=== PATIENT | female | born 1965 | race Caucasian/White ===

== ENCOUNTER 2018-07-09 13:27 | Outpatient (CLI) | payer SELFPAY ==
--- NOTE | 2018-07-09 16:11 | DI.MAMMO_ITS ---
SYMPTOM/DIAGNOSIS; SCREENING, [facility] Z00.00 MAMMOGRAM: Mammograms were interpreted according to the usual protocol including computer analysis with CAD system, tomosynthesis and C view imaging. Comparison with prior examinations. Breast density B. No suspicious masses or microcalcifications are seen. There is an asymmetric density in the retro-areolar region of the left breast. This may represent overlying fibroglandular tissue. Spot compression views requested for further evaluation. IMPRESSION: Additional views of the left breast as described above. Category 0 -B. MQSA ASSESSMENT OF FINDINGS: Incomplete: Needs additional imaging evaluation. Category 0. Patient will receive a letter notifying them of these results. BI-RADS category B. There are scattered areas of fibroglandular density.
== END 2018-07-09 13:47 ==
PROVIDERS: PCP Nurse Practitioner Family; Visit Provider Nurse Practitioner Family
DX: Z12.31 Encounter for screening mammogram for malignant neoplasm of breast (principal); R92.8 Other abnormal and inconclusive findings on diagnostic imaging of breast
CPT/HCPCS: 77063; 77067

== ENCOUNTER 2018-07-17 01:48 | Outpatient (CLI) | payer SELFPAY ==
--- NOTE | 2018-07-17 14:30 | DI.COMBO_ITS ---
SYMPTOM/DIAGNOSIS: F/U MAMMO, ASYMMETRIC DENSITY, R92.8 LEFT BREAST ADDITIONAL VIEWS AND LEFT BREAST ULTRASOUND: Additional images are interpreted according to the usual protocol including tomosynthesis and 2D imaging. On the follow up images, no definite nodule is identified. At ultrasound, at 3 o'clock there is a 5 by 4 by 5 mm., well circumscribed, rounded cyst which likely contains debris which is 2 cm. from the nipple. At 12 o'clock, 3 cm. from the nipple is a questioned solid/hypoechoic 5 by 4 by 6 mm. area of nodularity. In the retroareolar region, there are dilated ducts. SUMMARY: Question small cyst with debris at 3 o'clock and question solid 12 o'clock nodule as noted above. There is no specific finding to suggest a malignancy, however further evaluation with a repeat ultrasound in 6 months is suggested. MQSA ASSESSMENT OF FINDINGS: Probably benign. Six month follow-up recommended. Category 3. Patient will receive a letter notifying them of these results. BI-RADS category B. There are scattered areas of fibroglandular density.
== END 2018-07-17 02:08 ==
PROVIDERS: PCP Nurse Practitioner Family; Visit Provider Nurse Practitioner Family
DX: Z12.31 Encounter for screening mammogram for malignant neoplasm of breast (principal); R92.8 Other abnormal and inconclusive findings on diagnostic imaging of breast; N60.02 Solitary cyst of left breast; N63.21 Unspecified lump in the left breast, upper outer quadrant
CPT/HCPCS: 76642; 77063; 77067

== ENCOUNTER 2020-08-07 10:21 | Emergency (ER) | payer SELFPAY ==
[2020-08-07 10:23] VITALS: BP 146/98; PULSE 84; RESP 14; TEMP 36.8; O2SAT 97
--- NOTE | 2020-08-07 10:37 | ED.GENADUL_ITS ---
Discharge Plan Disposition Patient Disposition: HOME Condition: Stable Discharge Details Clinical Impression: Cystitis Primary Care Provider: Gabi Evangelista ED Provider: Sawyer Astorga Home Meds and New Rx's Prescriptions: New nitrofurantoin monohyd/m-cryst [Macrobid] 100 mg capsule 100 mg PO Q12H 5 Days Qty: 10 RF: 0 Continued imipramine HCl [Tofranil] 50 MG tablet 50 mg PO DAILY RF: 0 sumatriptan succinate 100 MG tablet 100 mg PO PRN PRN (Reason: Headache) RF: 0 norethindrone-e.estradiol-iron [Microgestin FE 05/18 (28)] 1 EACH tablet 1 tab PO DAILY RF: 0 venlafaxine 100 MG tablet 100 - 200 mg PO BID RF: 0 propranolol 10 MG tablet 10 mg PO BID RF: 0 alprazolam [Xanax XR] 3 MG tablet extended release 24 hr 3 mg PO DAILY RF: 0 bupropion HCl 300 mg tablet extended release 24 hr 300 mg PO DAILY RF: 0 escitalopram oxalate 20 mg tablet 20 mg PO DAILY RF: 0 clonazepam 1 mg tablet 1 mg PO DAILY PRNRF: 0 Discharge Instructions Instructions: Urinary Tract Infection in Men (ED) Additional Instructions: if symptoms don't resolve within 5 days see your primary care provider if you have fevers, severe back pain or persistent vomit return to the emergency department Medical Decision Making 54 yo female comes in with complaints of having a uti. She states since yesterday has had burning with urination and frequency and denies fevers, back pain, abdominal pain, vomit. She states it feels like prior uti's and last had one over 5 years ago. SHe is in no distress and has no fever on triage vitals and appears well systemically without cva tenderness. suspect cystitis based on symptoms, will obtain ua. Given well appearance and normal exam doubt pyelo or sepsis at this time ua consistent with uti, will start macrobid and return precautions given Differential Diagnosis Differential Diagnosis: cystitis, uti, urethritis HPI General Mode of arrival: ambulatory . Date/Time Provider Initiated Documentation: 08/07/20 10:22 . Limitations to Documentation: no limitations . Information obtained by: patient . History of Present Illness 54 year old F presents to the emergency department with the chief complaint of uti symptoms, described as moderate, Patient started experiencing this day(s) (1) and it has been constant. No relieving factors improve symptom(s), No exacerbating factors reported . Related Data Home Medications Medication Instructions Recorded Confirmed imipramine HCl [Tofranil] 50 mg PO DAILY 02/09/13 11/05/13 norethindrone-e.estradiol-iron 1 tab PO DAILY 02/09/13 11/05/13 [Microgestin FE 05/18 ()] sumatriptan succinate 100 mg PO PRN PRN 02/09/13 08/07/20 alprazolam [Xanax XR] 3 mg PO DAILY 11/05/13 11/05/13 propranolol 10 mg PO BID 11/05/13 11/05/13 venlafaxine 100 - 200 mg PO BID 11/05/13 11/05/13 bupropion HCl 300 mg PO DAILY 08/07/20 08/07/20 clonazepam 1 mg PO DAILY PRN 08/07/20 08/07/20 escitalopram oxalate 20 mg PO DAILY 08/07/20 08/07/20 nitrofurantoin monohyd/m-cryst 100 mg PO Q12H 5 Days #10 cap 08/07/20 [Macrobid] Previous Rx's Medication Instructions Recorded nitrofurantoin monohyd/m-cryst 100 mg PO Q12H 5 Days #10 cap 08/07/20 [Macrobid] Allergies Allergy/AdvReac Type Severity Reaction Status Date / Time No Known Allergies Allergy Unverified 08/07/20 10:28 General Stated Complaint: Urinary MAX: 4 Review of Systems All systems reviewed & are unremarkable except as noted in HPI and below Constitutional Constitutional: Denies chills, Denies fever(s) and Denies weakness Cardiovascular Cardiovascular: Denies chest pain and Denies dyspnea Respiratory Respiratory: Denies cough and Denies dyspnea Gastrointestinal Gastrointestinal: Denies abdominal pain, Denies nausea and Denies vomiting Neurologic Neurologic: Denies weakness [facility] Social History Smoking/Tobacco Use Status: Former Tobacco Use Smoking risk assessment performed?: Yes Alcohol Intake: never Drug use: Never Substance use type: does not use Details: smoked as a teanager Do you feel safe at home: Yes Do you feel safe in your relationship?: Yes Exam Const General: no acute distress Orientation: alert HENMT Head: normal to inspection Ears: external ears normal General nose exam: external nose normal Mouth: moist mucous membranes Eyes General: appearance normal, both eyes and all related structures Neck Neck: normal visual inspection Resp Effort & Inspection: normal respiratory effort and able to speak in complete sentences Cardio Rate: regular rate Back/Spine/Pelvis Back: no CVA tenderness Skin General skin exam: no rashes or lesions noted Neuro General: patient alert and patient oriented x3 Extrem General: normal to inspection Psych Mental Status: mental status grossly normal Course Vital Signs Vital signs: Vital Signs Temperature 36.8 C 08/07/20 10:23 Pulse 84 08/07/20 10:23 Respiratory Rate 14 08/07/20 10:23 Blood Pressure 146/98 H 08/07/20 10:23 Pulse Oximetry 97 08/07/20 10:23 Temperature 36.8 C 08/07/20 10:23 Temperature Source Skin 08/07/20 10:23 Pulse 84 08/07/20 10:23 Respiratory Rate 14 08/07/20 10:23 Respiratory Effort 08/07/20 10:31 Blood Pressure 146/98 H 08/07/20 10:23 Blood Pressure Position Sitting 08/07/20 10:23 Pulse Oximetry 97 08/07/20 10:23 Oxygen Delivery Method Room Air 08/07/20 10:23 Oxygen Flow Rate 0 08/07/20 10:23 Pain Level 6 08/07/20 10:32 Lab/Test Results Lab/Test Results: 08/07/20 10:26 Urine - Clean Catch Urine Culture - Pending
[2020-08-07 10:41] LABS: Bilirubin Negative (Negative); Blood Large (Negative); Clarity Sl Cloudy (Clear); Glucose Negative (Negative); Ketones Negative (Negative); Leukocyte Esterase Moderate (Negative); Nitrite Negative (Negative); Urobilinogen 0.2 EU/dL (Up TO 0.2)
[2020-08-07 10:55] LABS: Epithelial Cells Rare HPF (Negative); RBC >50 HPF (0-2); WBC >50 HPF (0-5)
[2020-08-07 10:56] LABS: Bacteria Moderate HPF (Negative); C & S Indicated? C&S Done As Ordered; Crystals Negative HPF (Negative); Mucus Negative (Negative); Other Cells Few Transitional (Negative)
== END 2020-08-07 10:52 | disposition home or self-care (01) ==
PROVIDERS: Emergency Provider Emergency Medicine; PCP Nurse Practitioner Family
DX: N30.00 Acute cystitis without hematuria (principal); Z87.440 Personal history of urinary (tract) infections
CPT/HCPCS: 87077; 99283; 81003; 81015; 87086; 87186

== ENCOUNTER 2021-06-09 13:25 | Outpatient (REF) | payer BC, SELFPAY ==
[2021-06-11 10:30] LABS: COVID-19 RT-PCR UVMMC Result Negative (Negative)
== END 2021-06-09 13:26 | disposition home or self-care (01) ==
LOC: LBN 13:25
PROVIDERS: PCP Nurse Practitioner Family; Visit Provider Physician Assistant Medical
DX: Z20.822 Contact with and (suspected) exposure to COVID-19 (principal); J02.9 Acute pharyngitis, unspecified
CPT/HCPCS: U0003

== ENCOUNTER 2021-10-26 15:45 | Outpatient (REF) | payer BC, SELFPAY ==
[2021-10-26 19:05] LABS: HCT 37.6 % (36.0-46.0); HGB 12.4 g/dL (11.2-15.7); MCH 27.8 pg (27.0-33.0); MCV 84 fL (80-95); MPV 9.1 fL (8.0-11.0); Platelet Count 273 10^3/uL (130-400); RBC 4.46 10^6/uL (3.93-5.22); RDW 11.8 % (11.7-14.6); WBC 5.25 10^3/uL (4.4-10.8)
[2021-10-26 19:20] LABS: Anion Gap 7.1 mmol/L (3-11); BUN 16 mg/dL (7-18); CO2 28.9 mmol/L (21.0-32.0); CREATININE 0.9 mg/dL (0.55-1.02); Calcium 8.7 mg/dL (8.5-10.1); Calculated LDL 89 mg/dL (<100); Chloride 103 mmol/L (98-107); Cholesterol 179 mg/dL (<200); Glucose 99 mg/dL (74-106); HDL Cholesterol 65 mg/dL (40-60); Sodium 139 mmol/L (136-145); Triglyceride 126 mg/dL (<150)
== END 2021-10-26 15:46 | disposition home or self-care (01) ==
LOC: NCHCN 15:45
PROVIDERS: PCP Nurse Practitioner Family; Visit Provider Nurse Practitioner Family
DX: Z00.00 Encounter for general adult medical examination without abnormal findings (principal); Z13.220 Encounter for screening for lipoid disorders; R03.0 Elevated blood-pressure reading, without diagnosis of hypertension
CPT/HCPCS: 80048; 80061; 85027

== ENCOUNTER → 2021-11-22 01:49 | Outpatient (CLI) | payer BC, SELFPAY ==
--- NOTE | 2021-11-22 15:33 | DI.MAMMO_ITS ---
Exam(s) MAMMO SCREENING EXAM: MAMMO SCREENING CLINICAL HISTORY: SCREENING, Z12.39 TECHNIQUE: Bilateral full field digital CC and MLO mammographic images were obtained with 3D tomosyn thesis and utilizing computer aided detection (CAD). COMPARISON: Available for comparison. FINDINGS: Masses/Architectural Distortion: None seen. Microcalcifications: There is a new cluster of calcifications in the upper outer quadrant of the righ t breast. Skin Thickening/Nipple Retraction: None. IMPRESSION: 1. New cluster of microcalcifications in the upper-outer quadrant of the right breast. 2. These calcification should be further characterized using spot magnification views. BI-RADS Category 0 - Assessment Incomplete: Need additional imaging evaluation Breast Density - Category B - Scattered areas of fibroglandular density Breast density category C or D implies that the patient has dense breast tissue. Dense breast tissue is very common and is not abnormal but dense breast tissue can make it harder to find cancer on a ma mmogram. Also, dense breast tissue may increase their breast cancer risk. This information about the result of the mammogram report was provided to the patient to raise their awareness. Use this report when you speak with the patient about their risks for breast cancer, which includes their family hist ory. At that time, you may recommend for more screening tests (Ultrasound or MRI) as they might be us eful based on their risk. A negative radiographic report should not delay biopsy if a dominant or clinically suspicious mass is present. Up to ten percent of cancers are not identified on mammography. A negative report may reinforce clinical impression. Adenosis and dense breasts may obscure an underlying neoplasm. False positive reports average 6 to 10%. Patient will receive a letter notifying them of these results.
== END ==
PROVIDERS: PCP Nurse Practitioner Family; Visit Provider Nurse Practitioner Family
DX: Z12.31 Encounter for screening mammogram for malignant neoplasm of breast (principal); R92.8 Other abnormal and inconclusive findings on diagnostic imaging of breast; R92.0 Mammographic microcalcification found on diagnostic imaging of breast
CPT/HCPCS: 77063; 77067

== ENCOUNTER → 2021-11-27 01:16 | Outpatient (CLI) | payer BC, SELFPAY ==
--- NOTE | 2021-11-27 | DI.MAMMO_ITS ---
Exam(s) MG MAMMO SCREEN CALL BACK UNI US BREAST RT LIMITED EXAM: MG MAMMO SCREEN CALL BACK UNI CLINICAL HISTORY: F/U MAMMO, NEW CLUSTER MICROCALCIFICATIONS RT BREAST TECHNIQUE: Mammograms were interpreted according to the usual protocol including computer analysis w ith CAD system, tomosynthesis and C-view imaging. COMPARISON: FINDINGS: Additional mammographic views of the right breast and right breast ultrasound are interpreted in conj unction. These examinations were obtained to evaluate group of microcalcifications seen on recent ma mmogram in the upper outer quadrant of the right breast. Magnification spot compression views show a group of microcalcifications about 5 cm from the nipple in the upper outer quadrant of the breast. These number at least 20 and although many are punctate there are some juan-like and other pleomorphic calcifications. No mass identified mammographically or ultrasonographically. The microcalcificatio ns are not seen on ultrasound. IMPRESSION: Suspicious group of microcalcifications of the right breast, new since prior mammogram of June 2018. Biopsy is recommended, stereotactic biopsy is indicated due to lack of visibility on ultrasound. BI-RADS Category 4 - Suspicious Abnormality: Biopsy should be considered Breast Density - Category B - Scattered areas of fibroglandular density
== END ==
PROVIDERS: PCP Nurse Practitioner Family; Visit Provider Nurse Practitioner Family
DX: Z12.31 Encounter for screening mammogram for malignant neoplasm of breast (principal); R92.8 Other abnormal and inconclusive findings on diagnostic imaging of breast; R92.0 Mammographic microcalcification found on diagnostic imaging of breast
CPT/HCPCS: 76642; 77063; 77067

== ENCOUNTER 2022-05-22 11:25 | Outpatient (REF) | payer BC, SELFPAY ==
[2022-05-22 15:05] LABS: HCT 39.2 % (36.0-46.0); HGB 12.9 g/dL (11.2-15.7); MCH 27.7 pg (27.0-33.0); MCHC 32.9 % (32.0-36.0); MCV 84 fL (80-95); MPV 8.8 fL (8.0-11.0); Platelet Count 289 10^3/uL (130-400); RBC 4.65 10^6/uL (3.93-5.22); RDW-SD 36.7 fL; WBC 6.46 10^3/uL (4.4-10.8)
[2022-05-22 18:42] LABS: Iron 34 ug/dL (50-170); Total Iron Binding Capacity 240 ug/dL (250-450); Transferrin Sat 14 % (15-50)
[2022-05-22 20:10] LABS: Anion Gap 10.6 mmol/L (3-11); BUN 15 mg/dL (7-18); CO2 25.4 mmol/L (21.0-32.0); Calcium 9.4 mg/dL (8.5-10.1); Chloride 105 mmol/L (98-107); Estimated GFR 66.95 (mL/min/1.73m2); Ferritin 124 ng/mL (8-252); Glucose 121 mg/dL (74-106); Potassium 4.6 mmol/L (3.5-5.1); Sodium 141 mmol/L (136-145); TSH (W/Ref FT4) 0.73 uIU/mL (0.36-3.74)
[2022-05-22 20:46] LABS: Vitamin D 25 Total 55.2 ng/mL (30-100)
== END 2022-05-22 11:26 | disposition home or self-care (01) ==
LOC: NCHCN 11:25
PROVIDERS: PCP Nurse Practitioner Family; Visit Provider Nurse Practitioner Family
DX: R53.83 Other fatigue (principal); F41.8 Other specified anxiety disorders; E55.9 Vitamin D deficiency, unspecified; E61.1 Iron deficiency
CPT/HCPCS: 80048; 82306; 85027; 82728; 83540; 83550; 84443

== ENCOUNTER 2022-11-26 01:02 | Outpatient (CLI) | payer BC, SELFPAY ==
--- NOTE | 2022-11-26 | DI.US_ITS ---
Exam(s) US BREAST RT COMPLETE MG MAMMO SCREENING 60 MIN DUR EXAM: MG MAMMO SCREENING 60 MIN DUR AND COMPLETE RIGHT BREAST ULTRASOUND CLINICAL HISTORY: SCREENING, Z12.39,PERSONAL H/O BREAST CA. TECHNIQUE: Bilateral full field digital CC and MLO mammographic images were obtained with 3D tomosyn thesis and utilizing computer aided detection (CAD). From the additional spot compression view right breast. Complete right breast ultrasound was performed including all 4 quadrants as well as the axillary griffin ons. COMPARISON: Prior mammograms were reviewed. This patient underwent right breast lumpectomy for microcalcifications since her last mammogram. FINDINGS: MAMMOGRAM: No new findings in the left breast. In the right breast there is absence of the previously present microcalcification group. No evidence of recurrence of these microcalcifications nor new microcalcification groups. There is some archite ctural distortion from scarring at the lumpectomy site. There is a new small noncalcified non spiculated nodule at approximately 6 o'clock position on the ma mmogram. This persists on additional spot compression view performed today. We proceeded with ultrasound. COMPLETE RIGHT BREAST ULTRASOUND: At the 6 o'clock position there is a 4 millimeter benign microcyst evident. This corresponds to the finding on the mammogram. No other cysts nor nodules. At 7-8 o'clock position there is some scar ti ssue evident. This is site of the prior lumpectomy. IMPRESSION: 1. No radiographic evidence of malignancy in the left breast. 2. In the right breast there is no recurrence of the microcalcification group and there are no new ma lignant-appearing microcalcification groups. There is a new nodule at 6 o'clock position which corre sponds to a 4 mm benign microcyst on today's ultrasound. Appropriate follow-up, as discussed by myself with the patient today, is repeat right breast mammogra m in 6 months BI-RADS Category 3 - 6 month - Probably Benign Finding: Recommend follow-up mammography in 6 months Breast Density - Category B - Scattered areas of fibroglandular density Breast density Category C or D implies that the patient has dense breast tissue. Dense breast tissue can make it harder to find cancer on a mammogram. Dense breast tissue is also associated with an incr eased risk of breast cancer. This information about the result of the mammogram report was provided to the patient to raise their awareness. Use this report when you speak with the patient about their risks for breast cancer, which includes their family history. At that time, you may recommend additional screening tests (Ultrasoun d or MRI) as these tests may add significant information. A negative radiographic report should not delay biopsy if a dominant or clinically suspicious mass is present. Up to ten percent of cancers are not identified on mammography. A negative report may reinforce clinical impression. Adenosis and dense breasts may obscure an underlying neoplasm. False positive reports average 6 to 10%. Patient will receive a letter notifying them of these results.
== END 2022-11-26 01:22 ==
LOC: DI 01:02
PROVIDERS: PCP Nurse Practitioner Family; Visit Provider Nurse Practitioner Family
DX: Z12.31 Encounter for screening mammogram for malignant neoplasm of breast (principal); N63.15 Unspecified lump in the right breast, overlapping quadrants
CPT/HCPCS: 76642; 77063; 77067

== ENCOUNTER → 2023-05-28 01:17 | Outpatient (CLI) | payer BC, SELFPAY ==
--- NOTE | 2023-05-28 09:49 | DI.MAMMO_ITS ---
Exam(s) MG MAMMO DIAGNOSTIC UNI EXAM: MAMMO DIAGNOSTIC UNI -RIGHT CLINICAL HISTORY: RT BREAST CANCER D05.11 R92.8 ABNL MAMMO, 6 MO FU. TECHNIQUE: RIGHT BREAST CC AND MLO mammographic images were obtained with 3D tomosynthesis technique and utilizing computer aided detection (CAD). COMPARISON: Prior mammograms were reviewed, as was prior ultrasound examination. This patient had r ecent right breast lumpectomy for microcalcifications in November 2021 (malignant). This is a six-month follow-up for a new nodular finding 11/26/2022 which was shown to be a microcyst on ultrasound. FINDINGS: The 6 o'clock position nodular density is less evident on the present study, further evidence that it was a small cyst. There are no new spiculated masses. Architectural distortion from the lumpectomy is again noted. There has been no recurrence of the microcalcifications previously seen in 2021. IMPRESSION: No radiographic evidence of malignancy in the right breast Previously present small 6 o'clock position nodule shown to be a cyst on prior ultrasound is no longe r seen. Appropriate follow-up is to keep this patient on her yearly mammogram schedule, with earlier imaging if a self detected breast change is noted. The patient was informed of the findings and follow-up recommendations by myself prior to leaving the department today. BI-RADS Category 2 - Benign Findings Breast Density - Category B - Scattered areas of fibroglandular density Breast density Category C or D implies that the patient has dense breast tissue. Dense breast tissue can make it harder to find cancer on a mammogram. Dense breast tissue is also associated with an incr eased risk of breast cancer. This information about the result of the mammogram report was provided to the patient to raise their awareness. Use this report when you speak with the patient about their risks for breast cancer, which includes their family history. At that time, you may recommend additional screening tests (Ultrasoun d or MRI) as these tests may add significant information. A negative radiographic report should not delay biopsy if a dominant or clinically suspicious mass is present. Up to ten percent of cancers are not identified on mammography. A negative report may reinforce clinical impression. Adenosis and dense breasts may obscure an underlying neoplasm. False positive reports average 6 to 10%. Patient will receive a letter notifying them of these results.
== END ==
PROVIDERS: PCP Nurse Practitioner Family; Visit Provider Nurse Practitioner Family
DX: Z12.31 Encounter for screening mammogram for malignant neoplasm of breast (principal); R92.8 Other abnormal and inconclusive findings on diagnostic imaging of breast
CPT/HCPCS: 77061; 77065; G0279

== ENCOUNTER 2023-06-16 11:34 | Emergency (ER) | payer BC, SELFPAY ==
[2023-06-16 11:35] VITALS: BP 136/86; PULSE 89; RESP 15; TEMP 36.7; O2SAT 98
[2023-06-16 11:39] VITALS: BP 136/86; PULSE 89; RESP 15; TEMP 36.7; O2SAT 98
[2023-06-16 11:54] LABS: Bilirubin Negative (Negative); Blood Small (Negative); Clarity Clear (Clear); Glucose Negative (Negative); Ketones Trace mg/dL (Negative); Leukocyte Esterase Small (Negative); Nitrite Negative (Negative); Specific Gravity 1.015 (1.005-1.025); pH 7.5 (5-8)
--- NOTE | 2023-06-16 12:02 | ED.GENADUL_ITS ---
HPI General Mode of arrival: ambulatory . Date/Time Provider Initiated Documentation: 06/16/23 11:37 . Limitations to Documentation: no limitations . Information obtained by: patient . History of Present Illness 57 year old F presents to the emergency department with the chief complaint of Dysuria, described as moderate, Patient started experiencing this day(s) (1) and it has been constant. No relieving factors improve symptom(s), No exacerbating factors reported . Patient notes denies fever/chills and nausea/vomiting. Patient did receive the following treatments prior to arrival, none Related Data Home Medications Medication Instructions Recorded Confirmed sumatriptan succinate 100 mg tablet 100 mg PO PRN PRN Headache 02/09/13 06/16/23 bupropion HCl 300 mg 24 hr tablet, 300 mg PO DAILY 08/07/20 06/16/23 extended release clonazepam 1 mg tablet 1 mg PO DAILY PRN 08/07/20 06/16/23 escitalopram oxalate 20 mg tablet 20 mg PO DAILY 08/07/20 06/16/23 hydrochlorothiazide 25 mg tablet 25 mg PO DAILY 06/16/23 06/16/23 nitrofurantoin 100 mg PO Q12H 5 days #10 caps 06/16/23 monohydrate/macrocrystals 100 mg capsule (Macrobid) Previous Rx's Medication Instructions Recorded nitrofurantoin 100 mg PO Q12H 5 days #10 caps 06/16/23 monohydrate/macrocrystals 100 mg capsule (Macrobid) Allergies Allergy/AdvReac Type Severity Reaction Status Date / Time No Known Allergies Allergy Unverified 06/16/23 11:39 General Stated Complaint: Urinary MAX: 4 Review of Systems All systems reviewed & are unremarkable except as noted in HPI and below Constitutional Constitutional: Denies chills, Denies fever(s) and Denies weakness Cardiovascular Cardiovascular: Denies chest pain and Denies dyspnea Respiratory Respiratory: Denies cough and Denies dyspnea Gastrointestinal Gastrointestinal: Denies abdominal pain, Denies nausea and Denies vomiting Genitourinary Genitourinary: Reports dysuria and Reports urinary urgency Integumentary/Breasts Skin/Breast: Denies rash Neurologic Neurologic: Denies weakness Exam Const General: no acute distress Orientation: alert HENMT Head: normal to inspection Ears: external ears normal General nose exam: external nose normal Mouth: moist mucous membranes Eyes General: appearance normal, both eyes and all related structures Neck Neck: normal visual inspection Resp Effort & Inspection: normal respiratory effort and able to speak in complete sentences Cardio Rate: regular rate GI Palpation: soft and nontender Back/Spine/Pelvis Back: no CVA tenderness Skin General skin exam: no rashes or lesions noted Neuro General: patient alert and patient oriented x3 Extrem General: normal to inspection Psych Mental Status: mental status grossly normal Course Vital Signs Vital signs: Vital Signs Temperature 36.7 C 06/16/23 11:35 Pulse 89 06/16/23 11:35 Respiratory Rate 15 06/16/23 11:35 Blood Pressure 136/86 06/16/23 11:35 Pulse Oximetry 98 06/16/23 11:35 Temperature 36.7 C 06/16/23 11:39 Temperature Source Temporal Artery Scan 06/16/23 11:39 Pulse 89 06/16/23 11:39 Respiratory Rate 15 06/16/23 11:39 Blood Pressure 136/86 06/16/23 11:39 Blood Pressure Position Sitting 06/16/23 11:39 Pulse Oximetry 98 06/16/23 11:39 Oxygen Delivery Method Room Air 06/16/23 11:39 Oxygen Flow Rate 0 06/16/23 11:39 Pain Level 0 06/16/23 11:39 Medical Decision Making 57-year-old female comes in with complaints of painful urination and urinary urgency for days similar to prior UTIs. She denies any abdominal pain, nausea vomiting, fevers, back pain. She arrives appearing well conscious alert and oriented x 4 speaking in full sentences in no distress. She has no CVA tenderness, no abdominal tenderness. Given her symptoms suspect UTI will obtain a urinalysis. She has no findings on exam or history and appears well so doubt entities such as sepsis or pyelonephritis and do not feel any labs or imaging indicated at this point other than a UA UA consistent with UTI, will start on nitrofurantoin, advised to follow-up with her primary care provider this week if not improving, return precautions given Differential Diagnosis Differential Diagnosis: Cystitis, UTI Quality:SDOH Health Related Social Needs: No Data to Display PFSH All Active Problems (Updated 06/16/23 @ 12:16 by Sawyer Astorga MD) Cystitis (Acute) Social History Smoking/Tobacco Use Status: Former Tobacco Use Smoking risk assessment performed?: Yes Alcohol Intake: never Drug use: Never Substance use type: does not use Details: smoked as a teanager Do you feel safe at home: Yes Do you feel safe in your relationship?: Yes Discharge Plan Disposition Patient Disposition: Home Condition: Stable Discharge Details Clinical Impression: Cystitis Primary Care Provider: JOSEPH ROE ED Provider: Sawyer Astorga Home Meds and New Rx's Prescriptions: New nitrofurantoin monohyd/m-cryst [Macrobid] 100 mg capsule 100 mg PO Q12H 5 Days Qty: 10 0RF Rx Instructions: must administer with a meal/food Continued sumatriptan succinate 100 MG tablet 100 mg PO PRN PRN (Reason: Headache) bupropion HCl 300 mg tablet extended release 24 hr 300 mg PO DAILY Patient Comments: TAKE ONE TABLET BY MOUTH EVERY DAY escitalopram oxalate 20 mg tablet 20 mg PO DAILY Patient Comments: TAKE 1 TABLET BY MOUTH DAILY clonazepam 1 mg tablet 1 mg PO DAILY PRN Patient Comments: TAKE ONE TABLET BY MOUTH EVERY DAY IF NEEDED FOR ANXIETY PLEASE SCHEDULE APPOINTMENT hydrochlorothiazide 25 mg tablet 25 mg PO DAILY Patient Comments: TAKE ONE TABLET BY MOUTH EVERY DAY Discharge Instructions Instructions: Urinary Tract Infection in Women (ED) Additional Instructions: If you not improving this week follow-up with your primary care provider If you feel more ill, develop fevers, or severe back pain return to the emergency department for reevaluation
[2023-06-16 12:12] LABS: Bacteria Rare HPF (Negative); C & S Indicated? Yes; Casts 0-2 Hyaline LPF (Negative); Crystals Negative HPF (Negative); Epithelial Cells Rare HPF (Negative); Mucus Trace (Negative)
--- NOTE | 2023-06-18 08:01 | NUR.NOTE ---
Accessed Pt chart to document antibiotic prescribed to pt for the specimen document
== END 2023-06-16 12:20 | disposition home or self-care (01) ==
PROVIDERS: Emergency Provider Emergency Medicine; PCP Nurse Practitioner Family
DX: N30.90 Cystitis, unspecified without hematuria (principal); R30.0 Dysuria; Z87.440 Personal history of urinary (tract) infections
CPT/HCPCS: 87077; 99283; 81003; 81015; 87086

== ENCOUNTER 2023-08-15 16:14 | Outpatient (REF) | payer BC, SELFPAY ==
[2023-08-15 19:20] LABS: HCT 37.8 % (36.0-46.0); HGB 12.9 g/dL (11.2-15.7); MCH 27.7 pg (27.0-33.0); MCHC 34.1 % (32.0-36.0); MCV 81 fL (80-95); Platelet Count 233 10^3/uL (130-400); RBC 4.65 10^6/uL (3.93-5.22); RDW 11.9 % (11.7-14.6); RDW-SD 35.2 fL; WBC 4.45 10^3/uL (4.4-10.8)
[2023-08-15 19:48] LABS: ALT 23 U/L (14-59); AST 17 U/L (15-37); Albumin 4.1 g/dL (3.4-5.0); Alkaline Phosphatase 99 U/L (46-116); Anion Gap 8.7 mmol/L (3-11); BUN 21 mg/dL (7-18); Bilirubin, Total 0.3 mg/dL (0.2-1.0); CO2 27.3 mmol/L (21.0-32.0); CREATININE 0.9 mg/dL (0.55-1.02); Calcium 8.7 mg/dL (8.5-10.1); Chloride 102 mmol/L (98-107); Ferritin 68 ng/mL (8-252); Glucose 120 mg/dL (74-106); Sodium 138 mmol/L (136-145)
[2023-08-15 19:58] LABS: Iron 45 ug/dL (50-170)
== END 2023-08-15 16:15 | disposition home or self-care (01) ==
LOC: NCHCN 16:14
PROVIDERS: PCP Nurse Practitioner Family; Visit Provider Nurse Practitioner Family
DX: I10 Essential (primary) hypertension (principal); E61.1 Iron deficiency
CPT/HCPCS: 80053; 85027; 82728; 83540; 83550

== ENCOUNTER 2024-01-28 01:46 | Outpatient (CLI) | payer BC, SELFPAY ==
--- NOTE | 2024-01-28 | DI.MAMMO_ITS ---
Exam(s) MG MAMMO SCREENING 60 MIN DUR EXAM: MG MAMMO SCREENING 60 MIN DUR CLINICAL HISTORY: Screening, Z12.31,personal h/o breast ca TECHNIQUE: Mammograms were interpreted according to the usual protocol including computer analysis w [employer] CAD system, tomosynthesis and C-view imaging. COMPARISON: 2014 through 28 May 2023 FINDINGS: The breasts are composed of scattered fibroglandular densities, Breast Density category B. No suspicious masses or suspicious microcalcifications are seen. Mild post lumpectomy scarring in th e right breast No skin thickening or abnormal axillary lymph nodes are seen. There has been no significant change from prior exams. IMPRESSION: BI-RADS Category 2 - Benign Findings Yearly screening mammography is recommended. Breast Density - Category B, scattered fibroglandular densities. A negative radiographic report should not delay biopsy if a dominant or clinically suspicious mass is present. Up to ten percent of cancers are not identified on mammography. A negative report may reinforce clinical impression. Adenosis and dense breasts may obscure an underlying neoplasm. False positive reports average 6 to 10%. Patient will receive a letter notifying them of these results.
== END 2024-01-28 02:06 ==
LOC: DI 01:47
PROVIDERS: PCP Nurse Practitioner Family; Visit Provider Nurse Practitioner Family
DX: Z12.31 Encounter for screening mammogram for malignant neoplasm of breast (principal); Z85.3 Personal history of malignant neoplasm of breast
CPT/HCPCS: 77063; 77067

== ENCOUNTER 2024-08-25 21:49 | Outpatient (REF) | payer BC, SELFPAY | END 2024-08-25 21:50 | disposition home or self-care (01) | LOC: LBN 21:49 | PROVIDERS: PCP Nurse Practitioner Family; Visit Provider Nurse Practitioner Family | DX: N30.01 Acute cystitis with hematuria (principal) | CPT/HCPCS: 87086 ==

== ENCOUNTER 2024-09-01 19:45 | Outpatient (REF) | payer BC, SELFPAY ==
[2024-09-01 22:17] LABS: Epithelial Cells Rare HPF (Negative); Other Cells Few Transitional (Negative); WBC 0-2 HPF (0-5)
[2024-09-01 22:18] LABS: Bacteria Few HPF (Negative); C & S Indicated? No; Casts Negative LPF (Negative); Crystals Negative HPF (Negative); Mucus Negative (Negative)
== END 2024-09-01 19:46 | disposition home or self-care (01) ==
LOC: LBN 19:45
PROVIDERS: PCP Nurse Practitioner Family; Visit Provider Nurse Practitioner Family
DX: R31.29 Other microscopic hematuria (principal)
CPT/HCPCS: 81015

== ENCOUNTER 2024-09-14 12:53 | Outpatient (REF) | payer BC, SELFPAY ==
[2024-09-14 16:46] LABS: Bilirubin Negative (Negative); Blood Negative (Negative); Clarity Clear (Clear); Glucose Negative (Negative); Ketones Negative (Negative); Leukocyte Esterase Negative (Negative); Nitrite Negative (Negative); Urobilinogen 0.2 mg/dL (Up to 0.2); pH 6.5 (5-8)
== END 2024-09-14 12:54 | disposition home or self-care (01) ==
LOC: NCHCN 12:53
PROVIDERS: PCP Nurse Practitioner Family; Visit Provider Nurse Practitioner Family
DX: R31.9 Hematuria, unspecified (principal)
CPT/HCPCS: 81003

== ENCOUNTER 2024-10-06 17:26 | Emergency (ER) | payer BC, SELFPAY ==
[2024-10-06 17:29] VITALS: BP 147/96; PULSE 70; RESP 18; TEMP 36.4; O2SAT 97
--- NOTE | 2024-10-06 18:04 | W.ED.GENAD ---
Discharge Plan Disposition Patient Disposition: Home Condition: Stable Discharge Details Clinical Impression: Injury of chest wall, Fall involving table as cause of accidental injury Primary Care Provider: JOSEPH ROE ED Provider: Monique Jimenez Home Meds and New Rx's Prescriptions: New lidocaine 5 % adhesive patch,medicated 1 patch topical DAILY Qty: 15 0RF Rx Instructions: leave on most painful area for up to 12 hrs Continued sumatriptan succinate 100 MG tablet 100 mg PO PRN PRN (Reason: Headache) bupropion HCl 300 mg tablet extended release 24 hr 300 mg PO DAILY Patient Comments: TAKE ONE TABLET BY MOUTH EVERY DAY escitalopram oxalate 20 mg tablet 20 mg PO DAILY Patient Comments: TAKE 1 TABLET BY MOUTH DAILY clonazepam 1 mg tablet 1 mg PO DAILY PRN Patient Comments: TAKE ONE TABLET BY MOUTH EVERY DAY IF NEEDED FOR ANXIETY PLEASE SCHEDULE APPOINTMENT hydrochlorothiazide 25 mg tablet 25 mg PO DAILY Patient Comments: TAKE ONE TABLET BY MOUTH EVERY DAY Discharge Instructions Instructions: Blunt Chest Trauma ED Additional Instructions: At this time no evidence of rib fracture on the chest x-ray. I do suspect that you will be sore for the next 2 to 3 days. You may alternate ice and heat, please take Tylenol or Ibuprofen with food every 4-6 hours as needed for pain and swelling. You may also use the lidocaine patches which were prescribed for you. Follow up with primary care provider in 3-5 days. Return to ED sooner if any worsening shortness of breath, headache, confusion, vomiting chest pain abdominal pain or concerns. Referrals: JOSEPH ROE, [employer] [Primary Care Provider] - 5 days HPI General Mode of arrival: ambulatory. Date/Time Provider Initiated Documentation: 10/06/24 17:45. Limitations to Documentation: no limitations. Information obtained by: patient, RN notes reviewed and old records reviewed. HPI Narrative: 58-year-old female presents to the ER after falling off a picnic table prior to arrival. 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 She jumped up to grab a branch of the tree and the branch broke, she landed on the picnic table which also broke and she landed on the ground on her left side. She is complaining of left rib pain. Denies any headache, neck pain no loss of consciousness denies any abdominal pain shortness of breath or trouble breathing. She is not on any blood thinners. She did not take anything prior to her arrival here. No tenderness crepitus or step-off with palpation of her CT or L-spine. Related Data Home Medications ?Medication ?Instructions ?Recorded ?Confirmed sumatriptan succinate 100 mg tablet 100 mg PO PRN PRN Headache 02/09/13 10/06/24 bupropion HCl 300 mg 24 hr tablet, 300 mg PO DAILY 08/07/20 10/06/24 extended release clonazepam 1 mg tablet 1 mg PO DAILY PRN 08/07/20 10/06/24 escitalopram oxalate 20 mg tablet 20 mg PO DAILY 08/07/20 10/06/24 hydrochlorothiazide 25 mg tablet 25 mg PO DAILY 06/16/23 10/06/24 lidocaine 5 % topical patch 1 patch topical DAILY #15 ea 10/06/24 Previous Rx's ?Medication ?Instructions ?Recorded lidocaine 5 % topical patch 1 patch topical DAILY #15 ea 10/06/24 Allergies Allergy/AdvReac Type Severity Reaction Status Date / Time No Known Allergies Allergy Unverified 10/06/24 17:32 General Stated Complaint: Fall/Non TraumaCriteria MAX: 4 Review of Systems All systems reviewed & are unremarkable except as noted in HPI and below Musculoskeletal Musculoskeletal: Reports as per HPI and Reports back pain Exam Narrative Exam Narrative: General: Well Developed, Awake and Alert, conversant. Skin: Warm and Dry HEENT: Head: No palpable deformities, Normocephalic Eyes: Pupils PERRLA, EOM's intact. No periorbital eccymosis or step off Ears: Canal patent. Tympanic membranes are clear . No marques's sign, no hemptympanum. Nose/Face: Atraumatic. Facial bones nontender to palpation and stable with manipulation. Mouth/Throat: No intraoral trauma. Teeth and mandible are intact. Neck: No midline tenderness, no step off, no deformity to palpation of C-spine. Trachea midline. Chest: No surface trauma. Left lateral rib cage tenderness with palpation. Lungs clear to ausculatation bilaterally. Heart: RRR, no rubs, murmurs or gallop. Abdomen: No abrasions, ecchymosis, or surface trauma. Nondistended. Nontender to palpation no guarding, rebound, or rigidity. Pelvis: Nontender to palpation and stable to compression. Femoral pulses strong and equal Extremities: no surface trauma. Sensation intact. Peripheral pulses intact and equal. Neuro: ANO x4, GCS 15, cranial nerves II through XII intact. Motor and sensory exam nonfocal. Reflexes are symmetric. Course Vital Signs Vital signs: Vital Signs Temperature 36.4 C L 10/06/24 17:29 Pulse 70 10/06/24 17:29 Respiratory Rate 18 10/06/24 17:29 Blood Pressure 147/96 H 10/06/24 17:29 Pulse Oximetry 97 10/06/24 17:29 Temperature 36.4 C L 10/06/24 17:29 Pulse 70 10/06/24 17:29 Respiratory Rate 18 10/06/24 17:29 Blood Pressure 147/96 H 10/06/24 17:29 Pulse Oximetry 97 10/06/24 17:29 Oxygen Delivery Method Room Air 10/06/24 17:29 Oxygen Flow Rate 0 10/06/24 17: Pain Level 7 10/06/24 17:29 Medical Decision Making 58-year-old female presents to the ER after falling off a picnic table prior to arrival. 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 She jumped up to grab a branch of the tree and the branch broke, she landed on the picnic table which also broke and she landed on the ground on her left side. She is complaining of left rib pain. Denies any headache, neck pain no loss of consciousness denies any abdominal pain shortness of breath or trouble breathing. She is not on any blood thinners. She did not take anything prior to her arrival here. No tenderness crepitus or step-off with palpation of her CT or L-spine. X-ray rib series ordered, ibuprofen and lidocaine patch. Preliminary x-ray results shows no acute fracture identified. No acute cardiopulmonary disease identified. I do suspect chest wall injury and contusion. I will send patient home with lidocaine patches instruct on taking Tylenol ibuprofen every 4-6 hours. Will discuss strict return instructions. Patient discharged in hemodynamically stable condition. This text was generated using [employer] system, please disregard any oddities of phrase or misspellings. Quality:SDOH Health Related Social Needs: No Data to Display PFSH All Active Problems (Updated 10/06/24 @ 19:41 by Monique Jimenez NP) Fall involving table as cause of accidental injury (Acute) Injury of chest wall (Acute) Cystitis (Acute) Social History Smoking/Tobacco Use Status: Former Tobacco Use Smoking risk assessment performed?: Yes Alcohol Intake: never Drug use: Never Substance use type: does not use Details: smoked as a teanager Do you feel safe at home: Yes Do you feel safe in your relationship?: Yes
[2024-10-06] MEDS: Lidocaine 5% Patch 1 PATCH TP (18:11)
[2024-10-06] MEDS: Ibuprofen 800 MG TAB PO (18:11)
--- NOTE | 2024-10-06 18:57 | DI.RAD_ITS ---
Exam(s) XR RIBS LT W PA LAT CHEST EXAM: XR RIBS LT W PA LAT CHEST CLINICAL HISTORY: Fall, Injury TECHNIQUE: 2D digital imaging was performed. Six images are obtained. COMPARISON: No exams were available for comparison FINDINGS: MEDIASTINUM: Normal. HEART: Normal. PULMONARY VASCULATURE: Normal. LUNGS: No focal consolidations. PLEURAL SPACE: No pleural effusion or pneumothorax. BONE:Within normal limits for the patient's age. LEFT RIBS: Normal. OTHER FINDINGS:Normal. IMPRESSION: 1. No acute pulmonary findings. 2. Unremarkable left ribs. No evidence of a displaced rib fracture, pneumothorax or pleural effusion. DATA REPOSITORY: RADIATION DOSE DELIVERED:
--- NOTE | 2024-10-06 19:37 | DI.VRAD_ITS ---
PROCEDURE INFORMATION: Exam: XR Left Ribs Exam date and time: 10/06/2024 6:44 PM Age: 58 years old Clinical indication: Pain; Other: Fall, injury TECHNIQUE: Imaging protocol: Radiologic exam of the left ribs. Views: 2 views. COMPARISON: No relevant prior studies available. FINDINGS: Bones/joints: AP and oblique views of the left ribs reveal no obvious fracture. There are no periosteal reactions. Soft tissues: No abnormal soft tissue gas or foreign bodies of the chest wall identified. The left lung is clear. IMPRESSION: 1. No acute left rib fracture identified. This does not exclude bone bruising, injury to the anterior costochondral junctions or soft tissue injury. If clinically indicated recommend a CT scan or nuclear medicine bone scan. PROCEDURE INFORMATION: Exam: XR Chest Exam date and time: 10/06/2024 6:44 PM Age: 58 years old Clinical indication: Pain; Other: Fall, injury TECHNIQUE: Imaging protocol: Radiologic exam of the chest. Views: 2 views. COMPARISON: No relevant prior studies available. FINDINGS: Lungs: No acute infiltrate identified. There is minimal biapical pleural thickening consistent with chronic change. No consolidation. Pleural spaces: No effusions or pneumothoraces. Heart/Mediastinum: The heart is normal in size. The superior mediastinum is unremarkable. Bones/joints: There are mild degenerative changes of the thoracic spine but no acute bony change. IMPRESSION: 1. No acute cardiopulmonary disease identified. Dictated and Authenticated by: Kody Hidalgo MD. Orderin Tony Amaya MD
[2024-10-06 20:03] VITALS: BP 130/80; PULSE 80; RESP 18; O2SAT 98
== END 2024-10-06 20:03 | disposition home or self-care (01) ==
PROVIDERS: Emergency Provider Registered Nurse Emergency; PCP Nurse Practitioner Family
DX: S09.8XXA Other specified injuries of head, initial encounter (principal); W08.XXXA Fall from other furniture, initial encounter; Y93.39 Activity, other involving climbing, rappelling and jumping off; Y92.210 Daycare center as the place of occurrence of the external cause; Y99.0 Civilian activity done for income or pay
CPT/HCPCS: 99283; 71046; 71100

== ENCOUNTER 2025-01-04 16:45 | Emergency (ER) | payer BC, SELFPAY ==
--- NOTE | 2025-01-04 16:45 | DI.RAD_ITS ---
Exam(s) XR KNEE RT 3V AP,LAT,SHANTANU EXAM: XR KNEE RT 3V AP,LAT,SHANTANU CLINICAL HISTORY: pain s/p fall 1 week ago. TECHNIQUE: 2D digital imaging was performed. Three views. COMPARISON: No exams were available for comparison FINDINGS: BONES: No acute fracture is present. No bony destructive lesion is seen. JOINTS: The knee is normally aligned. No joint effusion is seen. The joint spaces are maintained. SOFT TISSUE: Normal. IMPRESSION: Unremarkable radiographs of the right knee. DATA REPOSITORY: RADIATION DOSE DELIVERED:
[2025-01-04 16:48] VITALS: BP 126/85; PULSE 81; RESP 16; TEMP 36.7; O2SAT 98
--- NOTE | 2025-01-04 18:07 | W.ED.GENAD ---
Discharge Plan Disposition Patient Disposition: Home Condition: Stable Discharge Details Clinical Impression: Contusion of knee, right Primary Care Provider: JOSEPH ROE ED Provider: Sawyer Astorga Home Meds and New Rx's Prescriptions: Continued sumatriptan succinate 100 MG tablet 100 mg PO PRN PRN (Reason: Headache) bupropion HCl 300 mg tablet extended release 24 hr 300 mg PO DAILY Patient Comments: TAKE ONE TABLET BY MOUTH EVERY DAY escitalopram oxalate 20 mg tablet 20 mg PO DAILY Patient Comments: TAKE 1 TABLET BY MOUTH DAILY clonazepam 1 mg tablet 1 mg PO DAILY PRN Patient Comments: TAKE ONE TABLET BY MOUTH EVERY DAY IF NEEDED FOR ANXIETY PLEASE SCHEDULE APPOINTMENT hydrochlorothiazide 25 mg tablet 25 mg PO DAILY Patient Comments: TAKE ONE TABLET BY MOUTH EVERY DAY lidocaine 5 % adhesive patch,medicated 1 patch topical DAILY Qty: 15 0RF Rx Instructions: leave on most painful area for up to 12 hrs Discharge Instructions Additional Instructions: Your x-ray did not show any concerning findings at this time. Wear the brace as needed for comfort. If pain is not improving within a week follow-up with your primary care provider. Return to the emergency department if you feel more ill or have severe worsening pain. HPI General Mode of arrival: ambulatory. Date/Time Provider Initiated Documentation: 01/04/25 16:56. Limitations to Documentation: no limitations. Information obtained by: patient. History of Present Illness 59 year old F presents to the emergency department with the chief complaint of right knee pain, described as moderate, Quality is described as aching, Patient started experiencing this day(s) (7) and it has been constant. Rest improves symptom(s), Movement worsens symptoms . Patient notes no other symptoms.. Patient did receive the following treatments prior to arrival, none Related Data Home Medications ?Medication ?Instructions ?Recorded ?Confirmed sumatriptan succinate 100 mg tablet 100 mg PO PRN PRN Headache 02/09/13 01/04/25 bupropion HCl 300 mg 24 hr tablet, 300 mg PO DAILY 08/07/20 01/04/25 extended release clonazepam 1 mg tablet 1 mg PO DAILY PRN 08/07/20 01/04/25 escitalopram oxalate 20 mg tablet 20 mg PO DAILY 08/07/20 01/04/25 hydrochlorothiazide 25 mg tablet 25 mg PO DAILY 06/16/23 01/04/25 lidocaine 5 % topical patch 1 patch topical DAILY #15 ea 10/06/24 01/04/25 Previous Rx's ?Medication ?Instructions ?Recorded lidocaine 5 % topical patch 1 patch topical DAILY #15 ea 10/06/24 Allergies Allergy/AdvReac Type Severity Reaction Status Date / Time No Known Allergies Allergy Unverified 01/04/25 16:50 General Stated Complaint: Orthopedic MAX: 4 Review of Systems All systems reviewed & are unremarkable except as noted in HPI and below Constitutional Constitutional: Denies chills, Denies fever(s) and Denies weakness Cardiovascular Cardiovascular: Denies chest pain and Denies dyspnea Respiratory Respiratory: Denies dyspnea Gastrointestinal Gastrointestinal: Denies abdominal pain and Denies vomiting Neurologic Neurologic: Denies weakness Exam Const General: no acute distress Orientation: alert HENMT Head: normal to inspection Ears: external ears normal General nose exam: external nose normal Mouth: moist mucous membranes Eyes General: appearance normal, both eyes and all related structures Neck Neck: normal visual inspection Resp Effort & Inspection: normal respiratory effort and able to speak in complete sentences Cardio Rate: regular rate Skin General skin exam: no rashes or lesions noted Neuro General: patient alert and patient oriented x3 Extrem General: full ROM and capillary refill normal Psych Mental Status: mental status grossly normal Course Vital Signs Vital signs: Vital Signs Temperature 36.7 C 01/04/25 16:48 Pulse 81 01/04/25 16:48 Respiratory Rate 01/04/25 16:48 Blood Pressure 126/85 01/04/25 16:48 Pulse Oximetry 98 01/04/25 16:48 Temperature 36.7 C 01/04/25 16:48 Pulse 81 01/04/25 16:48 Respiratory Rate 01/04/25 16:48 Blood Pressure 126/85 01/04/25 16:48 Pulse Oximetry 98 01/04/25 16:48 Medical Decision Making 59-year-old female states that 1 week ago she got out of bed and tripped over the stairs she has set up for her cats at the end of the bed falling forward landing on her right knee. She did not hit her head or have loss of consciousness. She denies any headache, neck pain, back pain, chest or abdomen pain she localizes the pain to the anterior right knee where she has some bruising. She does have full range of motion of the knee, she has no tenderness anywhere else besides the anterior knee where the patella is. Intact distal sensation and pulses. She had x-rays done prior to my exam which on my read and radiology read shows no acute findings. She likely has a bone bruise, will provide a hinged knee brace and advised to follow-up with her PCP if not improving and return precautions given. She has no erythema or warmth of the knee no infectious symptoms so I doubt septic joint Differential Diagnosis Differential Diagnosis: Fracture, contusion, sprain PFSH All Active Problems (Updated 01/04/25 @ 18:10 by Sawyer Astorga MD) Contusion of knee, right (Acute) Cystitis (Acute) Social History Smoking/Tobacco Use Status: Former Tobacco Use Smoking risk assessment performed?: Yes Alcohol Intake: never Drug use: Never Substance use type: does not use Details: smoked as a teanager Do you feel safe at home: Yes Do you feel safe in your relationship?: Yes
== END 2025-01-04 18:37 | disposition home or self-care (01) ==
PROVIDERS: Emergency Provider Emergency Medicine; PCP Nurse Practitioner Family
DX: S80.02XA Contusion of left knee, initial encounter (principal); W01.0XXA Fall on same level from slipping, tripping and stumbling without subsequent striking against object, initial encounter
CPT/HCPCS: 99283 ×2; 73562

== ENCOUNTER 2025-01-20 15:08 | Outpatient (REF) | payer BC, SELFPAY ==
[2025-01-20 16:00] LABS: Abs Immature Grans 0.02 10^3/uL (0.0-0.06); HCT 40.4 % (36.0-46.0); HGB 13.4 g/dL (11.2-15.7); Immature Grans % 0.6 %; MCH 27.9 pg (27.0-33.0); MCHC 33.2 % (32.0-36.0); MCV 84 fL (80-95); MPV 9.0 fL (8.0-11.0); Platelet Count 246 10^3/uL (130-400); RBC 4.80 10^6/uL (3.93-5.22); RDW 12.4 % (11.7-14.6); RDW-SD 38.1 fL; WBC 3.40 10^3/uL (4.4-10.8)
[2025-01-20 17:02] LABS: Anion Gap 9.7 mmol/L (3-11); BUN 16 mg/dL (7-18); CO2 29.3 mmol/L (21.0-32.0); Calcium 9.5 mg/dL (8.5-10.1); Chloride 102 mmol/L (98-107); Estimated GFR 85.89 (mL/min/1.73m2); Ferritin 111 ng/mL (8-252); Glucose 103 mg/dL (74-106); Potassium 3.7 mmol/L (3.5-5.1); Sodium 141 mmol/L (136-145)
[2025-01-20 18:32] LABS: Iron 123 ug/dL (50-170); Total Iron Binding Capacity 283 ug/dL (250-450); Transferrin Sat 43 % (15-50)
== END 2025-01-20 15:09 | disposition home or self-care (01) ==
LOC: NCHCN 15:08
PROVIDERS: PCP Nurse Practitioner Family; Visit Provider Nurse Practitioner Family
DX: I10 Essential (primary) hypertension (principal); E61.1 Iron deficiency
CPT/HCPCS: 80048; 80053; 82728; 83540; 83550; 85025

== ENCOUNTER → 2025-03-01 02:14 | Outpatient (CLI) | payer BC, SELFPAY ==
--- NOTE | 2025-03-01 11:14 | DI.MAMMO_ITS ---
Exam(s) MG MAMMO SCREENING 60 MIN DUR EXAM: MG MAMMO SCREENING 60 MIN DUR CLINICAL HISTORY: SCREENING, Z12.31, PERSONAL HX BREAST CA, ACQUIRED ABSENCE RT BREAST TECHNIQUE: Bilateral full field digital CC and MLO mammographic images were obtained with 3D tomosynthesis and utilizing computer aided detection (CAD). COMPARISON: Comparison is made with prior examinations. FINDINGS: Masses/Architectural Distortion: No suspicious masses or areas of architectural distortion are present. There are post lumpectomy changes seen in the right breast. Microcalcifications: No suspicious pleomorphic-type are seen. Skin Thickening/Nipple Retraction: None. IMPRESSION: 1. No significant interval change with no specific features of malignancy noted. 2. Unless there is more urgent need, screening mammography is recommended, as per [employer] guidelines. 3. The findings were discussed with the patient on the date of the examination. BI-RADS Category 2 - Benign Findings Breast Density - Category B - There are scattered areas of fibroglandular density. Breast density Category C or D implies that the patient has dense breast tissue. Dense breast tissue can make it harder to find cancer on a mammogram. Dense breast tissue is also associated with an increased risk of breast cancer. This information about the result of the mammogram report was provided to the patient to raise their awareness. Use this report when you speak with the patient about their risks for breast cancer, which includes their family history. At that time, you may recommend additional screening tests (Ultrasound or MRI) as these tests may add significant information. A negative radiographic report should not delay biopsy if a dominant or clinically suspicious mass is present. Up to ten percent of cancers are not identified on mammography. A negative report may reinforce clinical impression. Adenosis and dense breasts may obscure an underlying neoplasm. False positive reports average 6 to 10%. Patient will receive a letter notifying them of these results.
== END ==
LOC: DI 02:14
PROVIDERS: PCP Nurse Practitioner Family; Visit Provider Nurse Practitioner Family
DX: Z12.31 Encounter for screening mammogram for malignant neoplasm of breast (principal)
CPT/HCPCS: 77063; 77067